=== PATIENT | male | born 1985 | race Caucasian/White ===

== ENCOUNTER 2021-08-10 20:01 | Emergency (ER) | payer OTHER ==
[~2021-08-10] VITALS: Ht 200.7 cm; Wt 113.4 kg
[2021-08-10 20:04] VITALS: BP 148/62
--- NOTE | 2021-08-10 20:04 | NUR ---
Patient ambulated to bed 02 with steady/even gait.
--- NOTE | 2021-08-10 20:13 | NUR ---
ERMD AT BEDSIDE WITH PT.
[2021-08-10] MEDS ORDERED: BACITRACIN OINT 500 UNITS/GM PKT TP ONE (20:15)
[2021-08-10] MEDS ORDERED: LIDOCAINE MPF 1% 10 MG/ML VIAL INJ ONE (20:15)
--- NOTE | 2021-08-10 20:22 | NUR ---
35/M BIB TO THE ED WITH CHIEF COMPLAINT OF LACERATION. A&0X4. VERBALLY RESPONSIVE AND ABLE TO COMMUNICATE NEEDS. VSS. PER PT, PT WAS RUNNING WITH DOG IN THE BACKYARD AND HIT LEFT FOREHEAD ON A LEMON TREE. PT DENIES PAIN BUT C/O OF HEADACHE. LACERATION ON TOP LEFT FOREHEAD. PT IS AMBULATORY. PT IS CONTINENT OF VOID AND BM. ERMD AWARE. PMH: DENIES ALLERGIES: NKA MEDS: DENIES
[2021-08-10] MEDS ORDERED: BACI1PAC6 TP ×3 (20:44→20:48)
[2021-08-10 21:06] VITALS: BP 123/62
--- NOTE | 2021-08-10 21:06 | NUR ---
Patient discharged with v/s stable. Written and verbal after care instructions given and explained. Patient alert, oriented and verbalized understanding of instructions. Ambulatory with steady gait. All questions addressed prior to discharge. ID band removed. Patient advised to follow up with PMD. Rx of BACITRACIN ZINC given. Patient REVIEWED on indication of medication including possible reaction and side effects. Opportunity to ask questions provided and answered.
== END 2021-08-10 21:06 | disposition home or self-care (01) ==
LOC: MED 20:01
DX: S01.81XA Laceration without foreign body of other part of head, initial encounter (principal); Z79.2 Long term (current) use of antibiotics; W22.8XXA Striking against or struck by other objects, initial encounter; Y92.89 Other specified places as the place of occurrence of the external cause; Y93.89 Activity, other specified; Y99.8 Other external cause status
CPT/HCPCS: 12011; 99282; J2001